=== PATIENT | male | born 1975 | race African-American/Black ===

== ENCOUNTER 2017-05-05 08:19 | Emergency (ER) | payer SELFPAY ==
[~2017-05-05] VITALS: Ht 190.5 cm; Wt 100.0 kg
[2017-05-05 11:16] VITALS: BP 102/66
== END 2017-05-05 11:17 | disposition home or self-care (01) ==
LOC: ER 09:32
DX: K57.92 Diverticulitis of intestine, part unspecified, without perforation or abscess without bleeding (principal); Z90.49 Acquired absence of other specified parts of digestive tract
CPT/HCPCS: 99283; Z7610

== ENCOUNTER 2017-05-13 08:03 | Inpatient (IN) | payer SELFPAY ==
[~2017-05-13] VITALS: Ht 190.5 cm; Wt 99.8 kg
[2017-05-13] MEDS ORDERED: SODIUM CHLORIDE 0.9% 1,000 ML IV ONE (08:30)
[2017-05-13 09:06] LABS: CLARITY URINE CLEAR (CLEAR); COLOR URINE DARK YELLOW (YELLOW); KETONES URINE TRACE (NEGATIVE); LEUKOCYTE ESTERASE URINE 1+ (NEGATIVE); NITRITE URINE NEGATIVE (NEGATIVE); OCCULT BLOOD URINE NEGATIVE (NEGATIVE); PH URINE 5.5 (4.5-8.0); PROTEIN URINE NEGATIVE (NEGATIVE); SPECIFIC GRAVITY URINE 1.024 (1.005-1.030); UROBILINOGEN URINE 0.2 E.U./dL (0.2-1.0)
[2017-05-13 09:39] LABS: BASOPHILS % 0.7 % (0.0-2.0); EOSINOPHILS % 1.7 % (0.0-5.0); HEMATOCRIT. 37.6 % (42.0-52.0); MEAN CORPUSCULAR VOLUME 86.9 fL (80.0-94.0); MEAN PLATELET VOLUME 7.9 fl (7.4-10.4); MONOCYTES % 11.2 % (2.0-8.0); NEUTROPHILS % 54.4 % (40.0-76.0); PLATELET 350 x1000/uL (130-400); RED BLOOD CELL COUNT 4.33 mill/uL (4.7-6.1); RED CELL DISTRIBUTION WIDTH 13.9 % (11.6-14.6)
[2017-05-13 09:45] LABS: INR 1.1; PROTHROMBIN TIME 11.4 sec (9.4-11.6)
[2017-05-13 09:49] LABS: CHLORIDE 107 mEq/L (98-107)
[2017-05-13] MEDS ORDERED: IOHEXOL-300 100 ML BOTTLE ONE (10:47)
[2017-05-13] MEDS ORDERED: MORPHINE SULFATE 4 MG/ML CPJ (NOT FOR IM USE) IV ONE (12:45)
[2017-05-13] MEDS ORDERED: METRONIDAZOLE 500 MG PREMIX 100 ML IV ONE (12:45)
[2017-05-13] MEDS ORDERED: CEFTRIAXONE 1 G PREMIX 50 ML IV ONE (12:45)
[2017-05-13] MEDS ORDERED: ONDANSETRON HCL 4MG/2ML VIAL IV ONE (12:45)
[2017-05-13 16:00] VITALS: BP 101/67
[2017-05-13] MEDS ORDERED: CIPR-263 PO (16:39)
[2017-05-13] MEDS ORDERED: METR500T PO (16:39)
[2017-05-13] MEDS ORDERED: HYDR-4001 PO (16:39)
[2017-05-13] MEDS ORDERED: MORPHINE SULFATE 4 MG/ML CPJ (NOT FOR IM USE) IV NR (17:45)
[2017-05-13 20:00] VITALS: BP 103/65
[2017-05-13] MEDS ORDERED: CLONIDINE 0.1MG TABLET PO PRN (20:30)
[2017-05-13] MEDS ORDERED: HYDROCODONE/ACETAMINOPHEN 5/325MG TABLET PO PRN (20:30)
[2017-05-13] MEDS ORDERED: NICOTINE 21MG PATCH TD ONE (20:30)
[2017-05-13] MEDS ORDERED: BISACODYL 10MG SUPP PR PRN (20:30)
[2017-05-13] MEDS ORDERED: NA PHOS,M-B/NA PHOS,DI-BA ENEMA 118ML PR PRN (20:30)
[2017-05-13] MEDS ORDERED: ONDANSETRON HCL 4MG/2ML VIAL IV PRN (20:30)
[2017-05-13] MEDS ORDERED: MAGNESIUM/ALUMINUM HYDROXIDE/SIMETHICONE 30ML UDC PO PRN (20:30)
[2017-05-13] MEDS ORDERED: BISACODYL 5MG TABLET PO PRN (20:30)
[2017-05-13] MEDS ORDERED: IPRATROPIUM/ALBUTEROL 0.5-3(2.5)MG/3ML NEB INH PRN (20:30)
[2017-05-13] MEDS ORDERED: ACETAMINOPHEN 650MG SUPP PR PRN (20:30)
[2017-05-13] MEDS ORDERED: GUAIFENESIN 200MG/10ML SUGAR FREE UDC PO PRN (20:30)
[2017-05-13] MEDS ORDERED: DOCUSATE SODIUM 100MG CAPSULE PO PRN (20:30)
[2017-05-13] MEDS ORDERED: DIPHENHYDRAMINE 50MG/ML VIAL IV PRN (20:30)
[2017-05-13] MEDS ORDERED: LACTULOSE 20G/30ML UDC PO PRN (20:30)
[2017-05-13] MEDS ORDERED: ACETAMINOPHEN 325MG TABLET PO PRN (20:30)
[2017-05-13] MEDS ORDERED: ACETAMINOPHEN 650MG/20.3ML UDC GT PRN (20:30)
[2017-05-13] MEDS: SODIUM CHLORIDE 0.45% 1,000 ML IV SCH (21:01)
[2017-05-13] MEDS: LEVOFLOXACIN 500MG PREMIX 100 ML IV SCH (21:09)
[2017-05-13] MEDS: SODIUM CHLORIDE 0.9% INJ 3ML FLUSH IVF SCH (21:09)
[2017-05-13] MEDS: NICOTINE 21MG PATCH TD SCH (21:10)
[2017-05-13] MEDS ORDERED: MAGNESIUM CITRATE 300ML SOLUTION PO NR (21:30)
[2017-05-13] MEDS: MORPHINE SULFATE 4 MG/ML CPJ (NOT FOR IM USE) IV PRN (22:03)
[2017-05-13] MEDS: METRONIDAZOLE 500 MG PREMIX 100 ML IV SCH (23:30)
[2017-05-14] VITALS: BP 97/59
[2017-05-14 04:00] VITALS: BP 90/55
[2017-05-14] MEDS: METRONIDAZOLE 500 MG PREMIX 100 ML IV SCH ×3 (05:00→21:18)
[2017-05-14] MEDS: SODIUM CHLORIDE 0.9% INJ 3ML FLUSH IVF SCH ×3 (05:30→21:19)
[2017-05-14 06:09] LABS: BASOPHILS % 0.6 % (0.0-2.0); EOSINOPHILS % 1.9 % (0.0-5.0); HEMATOCRIT. 38.4 % (42.0-52.0); HEMOGLOBIN. 12.9 g/dL (14.0-18.0); LYMPHOCYTES % 36.5 % (20.0-50.0); MEAN CORPUSCULAR HEMOGLOBIN 29.5 pg (28.0-32.0); MEAN CORPUSCULAR VOLUME 87.7 fL (80.0-94.0); MEAN PLATELET VOLUME 8.5 fl (7.4-10.4); MONOCYTES % 11.4 % (2.0-8.0); NEUTROPHILS % 49.6 % (40.0-76.0); PLATELET 357 x1000/uL (130-400); RED BLOOD CELL COUNT 4.38 mill/uL (4.7-6.1); RED CELL DISTRIBUTION WIDTH 13.7 % (11.6-14.6)
[2017-05-14 06:45] LABS: CHLORIDE 105 mEq/L (98-107)
[2017-05-14 06:57] LABS: HDL CHOLESTEROL 23 mg/dL (40-59); LDL CHOLESTEROL 90 mg/dL (5-100)
[2017-05-14 08:00] VITALS: BP 111/72
[2017-05-14] MEDS: NICOTINE 21MG PATCH TD SCH (09:46)
[2017-05-14 12:00] VITALS: BP 107/73
[2017-05-14] MEDS: MORPHINE SULFATE 4 MG/ML CPJ (NOT FOR IM USE) IV PRN ×3 (14:17→22:53)
[2017-05-14 16:00] VITALS: BP 100/72
[2017-05-14] MEDS: SODIUM CHLORIDE 0.45% 1,000 ML IV SCH (19:52)
[2017-05-14 20:00] VITALS: BP 107/69
[2017-05-14] MEDS: LEVOFLOXACIN 500MG PREMIX 100 ML IV SCH (20:02)
[2017-05-15] VITALS: BP 103/63
[2017-05-15 04:00] VITALS: BP 103/63
[2017-05-15 04:58] LABS: *AMPHETAMINES SCREEN URINE NEGATIVE (NEGATIVE); *BARBITURATES SCREEN URINE NEGATIVE (NEGATIVE); *BENZODIAZEPINES SCREEN URINE NEGATIVE (NEGATIVE); *COCAINE SCREEN URINE NEGATIVE (NEGATIVE); CANNABINOID URINE SCREEN NEGATIVE (NEGATIVE); METHADONE URINE SCREEN NEGATIVE (NEGATIVE); OPIATES URINE SCREEN PRESUMTIVE POSITIVE (NEGATIVE); PHENCYCLIDINE URINE SCREEN NEGATIVE (NEGATIVE)
[2017-05-15] MEDS: SODIUM CHLORIDE 0.45% 1,000 ML IV SCH (06:16)
[2017-05-15] MEDS: SODIUM CHLORIDE 0.9% INJ 3ML FLUSH IVF SCH (06:16)
[2017-05-15] MEDS: METRONIDAZOLE 500 MG PREMIX 100 ML IV SCH (06:17)
[2017-05-15] MEDS: MORPHINE SULFATE 4 MG/ML CPJ (NOT FOR IM USE) IV PRN (06:23)
[2017-05-15 07:41] VITALS: BP 94/62
[2017-05-15] MEDS: NICOTINE 21MG PATCH TD SCH (09:01)
[2017-05-15 11:05] VITALS: BP 118/71
[2017-05-15 12:55] LABS: BASOPHILS % 0.6 % (0.0-2.0); EOSINOPHILS % 1.4 % (0.0-5.0); HEMATOCRIT. 38.3 % (42.0-52.0); HEMOGLOBIN. 13.4 g/dL (14.0-18.0); LYMPHOCYTES % 38.5 % (20.0-50.0); MEAN CORPUSCULAR HEMOGLOBIN 30.2 pg (28.0-32.0); MEAN CORPUSCULAR VOLUME 86.3 fL (80.0-94.0); MEAN PLATELET VOLUME 7.9 fl (7.4-10.4); MONOCYTES % 11.7 % (2.0-8.0); NEUTROPHILS % 47.8 % (40.0-76.0); PLATELET 349 x1000/uL (130-400); RED BLOOD CELL COUNT 4.44 mill/uL (4.7-6.1); RED CELL DISTRIBUTION WIDTH 13.6 % (11.6-14.6)
[2017-05-15 13:15] LABS: CHLORIDE 106 mEq/L (98-107)
[2017-05-15] MEDS ORDERED: METRONIDAZOLE 500MG TABLET PO SCH (14:00)
[2017-05-15] MEDS ORDERED: LEVOFLOXACIN 500MG TABLET PO SCH (21:00)
== END 2017-05-15 14:07 | disposition home or self-care (01) | DRG 244 ==
LOC: ER 08:10 → 6EST 12:44 → ENRESERV 13:47
PROVIDERS: ADMIT Family Medicine; ATTEND Family Medicine
DX: K57.32 Diverticulitis of large intestine without perforation or abscess without bleeding (principal); K76.0 Fatty (change of) liver, not elsewhere classified; E86.0 Dehydration; F17.200 Nicotine dependence, unspecified, uncomplicated; Z90.49 Acquired absence of other specified parts of digestive tract
CPT/HCPCS: 36415; 74177; 80053; 80061; 80305; 81003; 83690; 85025; 85610; 96374; 96375; 99285; J0696; J1956; J2270; J2405; J3490; J7030; J7040; Q9967